=== PATIENT | male | born 1950 | race Caucasian/White ===

== ENCOUNTER → 2021-02-22 | Day surgery (SDC) | payer MEDICARE ==
[~2021-02-22] MED LIST: ASPIRIN CHEWABL81 MG PO; ATORVASTATIN CA20 MG PO; CARVEDILOL3.125 MG PO; CLOPIDOGREL75 MG PO; COLACE100 MG PO; LISINOPRIL10 MG PO; NITROGLYCERIN0.4 MG SL; PERCOCET 5/325 T1 EA PO; Voltaren Gel 1 % TOP
== END | disposition home or self-care (01) ==
LOC: OR 05:25
DX: K40.90 Unilateral inguinal hernia, without obstruction or gangrene, not specified as recurrent (principal); I25.10 Atherosclerotic heart disease of native coronary artery without angina pectoris; E78.5 Hyperlipidemia, unspecified; I25.2 Old myocardial infarction; I10 Essential (primary) hypertension; Z79.82 Long term (current) use of aspirin; Z79.02 Long term (current) use of antithrombotics/antiplatelets; Z79.899 Other long term (current) drug therapy
CPT/HCPCS: C1781; J0690; J1100; J2001; J2405; J2704; J3010; J7030; J7120

== ENCOUNTER → 2021-04-22 | Emergency (ER) | payer MEDICARE | END | disposition home or self-care (01) | LOC: ER1 20:57 | DX: S01.01XA Laceration without foreign body of scalp, initial encounter (principal); Z79.82 Long term (current) use of aspirin; Z79.02 Long term (current) use of antithrombotics/antiplatelets; W22.8XXA Striking against or struck by other objects, initial encounter; Y92.009 Unspecified place in unspecified non-institutional (private) residence as the place of occurrence of the external cause | CPT/HCPCS: 12001; 99282 ==

== ENCOUNTER 2021-05-18 12:04 | Emergency (ER) | payer MEDICARE | END 2021-05-18 13:15 | disposition home or self-care (01) | LOC: ER1 12:04 | DX: S50.11XA Contusion of right forearm, initial encounter (principal); W00.0XXA Fall on same level due to ice and snow, initial encounter; Y92.009 Unspecified place in unspecified non-institutional (private) residence as the place of occurrence of the external cause | CPT/HCPCS: 73080; 73090; 99283 ==

== ENCOUNTER 2021-05-23 17:01 | Emergency (ER) | payer MEDICARE | END 2021-05-23 22:09 | disposition left against medical advice (07) | LOC: ER1 17:01 | DX: M25.511 Pain in right shoulder (principal); I25.2 Old myocardial infarction; I10 Essential (primary) hypertension | CPT/HCPCS: 71045; 99283 ==

== ENCOUNTER 2021-10-09 13:10 | Emergency (ER) | payer MEDICARE | END 2021-10-09 13:50 | disposition home or self-care (01) | LOC: ER1 13:10 | DX: S01.552A Open bite of oral cavity, initial encounter (principal); I11.9 Hypertensive heart disease without heart failure; Z90.49 Acquired absence of other specified parts of digestive tract; Z79.02 Long term (current) use of antithrombotics/antiplatelets; Z79.82 Long term (current) use of aspirin; W50.3XXA Accidental bite by another person, initial encounter | CPT/HCPCS: 99283 ==

== ENCOUNTER 2021-11-30 14:48 | Emergency (ER) | payer MEDICARE | END 2021-11-30 15:10 | disposition home or self-care (01) | LOC: ER1 14:48 | DX: S00.512A Abrasion of oral cavity, initial encounter (principal); I11.9 Hypertensive heart disease without heart failure; Z79.82 Long term (current) use of aspirin; W22.8XXA Striking against or struck by other objects, initial encounter | CPT/HCPCS: 99282 ==